=== PATIENT | male | born 1980 | race Caucasian/White ===

== ENCOUNTER 2016-06-12 13:19 | Emergency (ER) | payer OTHER ==
[~2016-06-12] VITALS: Ht 188 cm; Wt 77.7 kg
[2016-06-12 13:46] VITALS: TEMP 36.6; Ht 188 cm; Wt 77.7 kg
[2016-06-12] MEDS ORDERED: AMOX500C3 PO (14:06)
--- NOTE | 2016-06-12 14:13 | EMERGENCY ROOM VISIT NOTE ---
History First contact with patient: 13:55 Chief Complaint: FACIAL PAIN/INJURY Stated Complaint: PAIN IN JAW, TEETH, UNDER JAW, POSSIBLE INFECTION History of Present Illness The patient is a 35 year old male who presents to the Emergency Room with complaints of right-sided facial pain. The patient believes that he may have a dental infection. He reports having several fillings done approximately 1.5 months ago. He thinks that he can feel a lymph node under his right jaw. He also reports pain radiating near the right ear, and behind the right eye. The patient denies any tongue or throat swelling, neck pain or headache. He also denies any fevers or chills or other recent infection. He rates his discomfort a 6 out of 10. Review of Systems 10 system review was performed and was negative except for pertinent positives and negatives as indicated in history of present illness Past Medical/Surgical History Medical Problems: (1) Heroin addiction Surgical Problems: (1) No history of previous surgery Family History Unremarkable Social History Smoking Status: Former Smoker Alcohol Use: none Drug Use: heroin (recovering addict) Marital Status: single Occupation Status: employed Current/Historical Medications Scheduled Amoxicillin (Amoxil), 500 MG PO TID Allergies Uncoded Allergies: NKDA (Allergy, Unknown, 12/24/02) Physical Exam Vital Signs Date Time Temp Pulse Resp B/P Pulse Ox O2 Delivery O2 Flow Rate FiO2 06/12/16 13:46 36.6 54 20 119/70 100 Room Air Physical Exam CONSTITUTIONAL: Healthy and well nourished. Alert and oriented X 3 with positive affect. HEENT: Normocephalic, atraumatic. Pupils equal, round and reactive. No facial edema noted. Examination of the right ear does not show any erythema of the external canal. Cerumen impaction bilaterally prohibits TM visualization. The patient has no tenderness to palpation of the right facial region. OROPHARYNX: The patient has no obvious gingival erythema. There is mild erythema over the right tonsillar arch. No exudates. Negative trismus. No evidence for Abelardo's angina or retropharyngeal abscess. LYMPHATICS: The patient has a solitary right submandibular lymph node. No preauricular, cervical chain or submental adenopathy. NECK: Full active range of motion without discomfort. No JVD or carotid bruits. RESPIRATORY: Clear to auscultation bilaterally with no wheezing, crackles, rhonchi or stridor. CARDIOVASCULAR: Regular rate and rhythm with no murmurs, rubs or gallops. INTEGUMENTARY: No rash or other significant dermatologic conditions noted. NEUROLOGIC: Facial sensations are intact. Medical Decision & Procedures ED Course Patient history and physical exam were performed. Nurse's notes were reviewed. Vital signs were reviewed and were normal. The exact etiology of the patient' s discomfort is unknown. Because he does have right tonsillar arch erythema and right submandibular adenopathy, I did elect to treat the patient with amoxicillin 500 mg 3 times a day 10 days. He was encouraged to take ibuprofen and Tylenol as needed for pain. I did encourage him to follow up with his dentist for reevaluation. Return to the emergency department for any progressively worsening symptoms or fever. The patient was happy with plan of care, voice understanding of all discharge instructions, refused any analgesics while in the emergency department, and rated his pain a 6 out of 10 at the time of discharge. Impression Primary Impression: Right sided facial pain Departure Information Dispostion Home / Self-Care Prescriptions Amoxicillin (AMOXIL) 500 Mg Cap 500 MG PO TID for 10 Days, #30 CAP Prov: Frantz Farrar PA 06/12/16 Forms HOME CARE DOCUMENTATION FORM, IMPORTANT VISIT INFORMATION Patient Instructions My [facility] Additional Instructions Complete all amoxicillin antibiotics as prescribed. Ibuprofen or Tylenol as needed for pain. Suggest follow-up with your dentist for reevaluation. Return to the emergency department for any progressively worsening symptoms or developing fever.
[2016-06-12] MEDS ORDERED: BUPR1SUB23 PO (14:17)
[2016-06-12] MEDS ORDERED: BUPR-83 PO (14:17)
[2016-06-12 14:28] VITALS: BP 138/85; PULSE 59; O2SAT 100
== END 2016-06-12 14:29 | disposition home or self-care (01) ==
LOC: C.EDB 13:20 → C.EDD 14:29
DX: R51 Headache (principal); Z87.891 Personal history of nicotine dependence; F11.21 Opioid dependence, in remission

== ENCOUNTER 2016-06-25 19:05 | Emergency (ER) | payer OTHER ==
[~2016-06-25] VITALS: Ht 188 cm; Wt 75.3 kg
[~2016-06-25 19:05] MED LIST: BUPR-83 PO; BUPR1SUB23 PO
[2016-06-25 19:09] VITALS: PULSE 71; TEMP 37.1; Ht 188 cm; Wt 75.3 kg
[2016-06-25 20:01] LABS: MANUAL MICROSCOPIC REQUIRED? YES; URINE APPEARANCE TURBID (CLEAR); URINE BILIRUBIN NEG (NEG); URINE COLOR RED; URINE NITRITE NEG (NEG); URINE PH 6.5 (4.5-7.5); URINE SPECIFIC GRAVITY 1.015 (1.000-1.030); UROBILINOGEN NEG (NEG)
[2016-06-25 20:02] LABS: REVIEW REQ? NO
[2016-06-25 20:05] LABS: URINE BACTERIA 1+ (NEG); URINE RBC >30 /hpf (0-4); ZZUR CULT IF INDIC CLEAN CATCH YES
--- NOTE | 2016-06-25 20:14 | DIAGNOSTIC IMAGING REPORT ---
ABDOMEN AND PELVIS CT WITHOUT CONTRAST CT DOSE: 666.21 mGy.cm HISTORY: Left flank pain TECHNIQUE: Multiaxial CT images of the abdomen and pelvis were performed without the use of intravenous and oral contrast according to the standard department stone protocol. COMPARISON STUDY: None. FINDINGS: There is a 4 mm stone within the left ureterovesical junction best seen on image 148. This results in minimal fullness within the left renal collecting system without abby hydronephrosis. There is a punctate stone within the right kidney. A 6 mm hypodense lesion within the left kidney is too small to characterize but statistically represents a cyst. The unenhanced liver, spleen, adrenal glands, gallbladder, and pancreas are unremarkable. No bowel wall thickening or obstruction on this noncontrast study. Multiple cecal diverticula. Normal appendix. IMPRESSION: 1. A 4 mm stone within the left ureterovesical junction. There is slight fullness within the left renal collecting system without abby hydronephrosis. 2. Right-sided nephrolithiasis. Electronically signed by: Haile Yancey M.D. 06/25/2016 8:13 PM Dictated Date/Time: 06/25/2016 8:08 PM
--- NOTE | 2016-06-25 20:21 | EMERGENCY ROOM VISIT NOTE ---
History Report prepared by Bobby: Debbi Ureña Under the Supervision of: Dr. Doroteo Graves D.O. First contact with patient: 19:12 Chief Complaint: HEMATURIA Stated Complaint: BLOOD IN URINE,BACK/ABD PAIN History of Present Illness The patient is a 35 year old male who presents to the Emergency Room with complaints of persistent hematuria that began one day ago. He currently rates his discomfort as a 1/10 in severity. The patient states that he initially noticed the hematuria yesterday, but states that it had worsened today. He additionally associates left flank pain and lower left abdominal pain. The patient states that he passed clots in his urine. He additionally associates burning with urination. The patient states that he has a history of hematuria in the past, but denies it ever being this severe. Source of History: patient Onset: one day ago Position: other (global) Symptom Intensity: 1/10 Quality: other (hematuria) Timing: worsening, other (persistent) Associated Symptoms: + abdominal pain (left lower), + urinary symptoms ( burning with urination) Note: Associated Symptoms: left flank pain Review of Systems See HPI for pertinent positives & negatives. A total of 10 systems reviewed and were otherwise negative. Past Medical & Surgical Medical Problems: (1) Heroin addiction Surgical Problems: (1) No history of previous surgery Family History No pertinent family history stated. Social History Smoking Status: Former Smoker Alcohol Use: none Drug Use: heroin Marital Status: single Occupation Status: employed Current/Historical Medications Scheduled Buprenorphine Hcl-Naloxone Hcl (Suboxone 8-2 Mg), 1 INCH PO DAILY Bupropion (Wellbutrin), 150 MG PO DAILY Allergies Coded Allergies: No Known Allergies (Unverified , 06/25/16) Physical Exam Vital Signs Date Time Temp Pulse Resp B/P Pulse Ox O2 Delivery O2 Flow Rate FiO2 06/25/16 19:09 37.1 71 16 121/74 100 Room Air Physical Exam CONSTITUTIONAL/VITAL SIGNS: Reviewed / noted above. GENERAL: Non-toxic in appearance. INTEGUMENTARY: Warm, dry, and [place]. HEAD: Normocephalic. EYES: without scleral icterus or trauma. ENT/OROPHARYNX: clear and moist. LYMPHADENOPATHY/NECK: Is supple without lymphadenopathy or meningismus. RESPIRATORY: Lungs clear and equal. CARDIOVASCULAR: Regular rate and rhythm. GI/ABDOMEN: Soft and nontender. No organomegaly or pulsatile mass. No rebound or guarding. Normal bowel sounds. EXTREMITIES: Warm and well perfused. BACK: No CVA tenderness. NEUROLOGICAL: Intact without focal deficits. PSYCHIATRIC: normal affect. MUSCULOSKELETAL: Normally developed with good muscle tone. Medical Decision & Procedures ER Provider Diagnostic Interpretation: CT results as stated below per my review and radiologist interpretation: ABDOMEN AND PELVIS CT WITHOUT CONTRAST CT DOSE: 666.21 mGy.cm HISTORY: Left flank pain TECHNIQUE: Multiaxial CT images of the abdomen and pelvis were performed without the use of intravenous and oral contrast according to the standard department stone protocol. COMPARISON STUDY: None. FINDINGS: There is a 4 mm stone within the left ureterovesical junction best seen on image 148. This results in minimal fullness within the left renal collecting system without abby hydronephrosis. There is a punctate stone within the right kidney. A 6 mm hypodense lesion within the left kidney is too small to characterize but statistically represents a cyst. The unenhanced liver, spleen, adrenal glands, gallbladder, and pancreas are unremarkable. No bowel wall thickening or obstruction on this noncontrast study. Multiple cecal diverticula. Normal appendix. IMPRESSION: 1. A 4 mm stone within the left ureterovesical junction. There is slight fullness within the left renal collecting system without abby hydronephrosis. 2. Right-sided nephrolithiasis. Electronically signed by: Haile Yancey M.D. 06/25/2016 8:13 PM Dictated Date/Time: 06/25/2016 8:08 PM Laboratory Results Test 06/25/16 19:45 Urine Color RED Urine Appearance TURBID (CLEAR) Urine pH 6.5 (4.5-7.5) Urine Specific [place] 1.015 (1.000-1.030) Urine Protein 2+ (NEG) Urine Glucose (UA) NEG (NEG) Urine Ketones TRACE (NEG) Urine Occult Blood 3+ (NEG) Urine Nitrite NEG (NEG) Urine Bilirubin NEG (NEG) Urine Urobilinogen NEG (NEG) Urine Leukocyte Esterase NEG (NEG) Urine RBC >30 /hpf (0-4) Urine WBC 5-10 /hpf (0-5) Urine Epithelial Cells 10-20 /lpf (0-5) Urine Bacteria 1+ (NEG) Urine Hyaline Casts 1-5 /lpf (0-5) Laboratory results as stated above per my review. ED Course 1915: Previous medical records were reviewed. The patient was evaluated in room A3. A complete history and physical examination was performed. 2016: I reevaluated the patient and he is resting comfortably. I discussed the exam findings with him and I discussed the treatment plan. He verbalized complete understanding and agreement. He is ready to go home. Medical Decision Differential considered: pancreatitis, hepatitis, or acute cholecystitis, AAA, UTI, pyelonephritis, kidney stones, appendicitis, diverticulitis, shingles, bowel obstruction mesenteric ischemia, intussusception,hernia, testicular torsion. This is a 35-year-old male who presents to the ED with a chief complaint left flank pain. The patient also reports hematuria. His symptoms started earlier today. His symptoms haven't improved. An i-STAT laboratory study reveals normal hemoglobin and normal kidney function. CT scan of the abdomen and pelvis reveals a 4 mm left UVJ stone. The patient is currently asymptomatic. He was told results the test. He was given a urine strainer. He is felt to be stable for discharge. He will use ibuprofen as needed for pain. Impression Primary Impression: Kidney stone on left side Additional Impression: Renal colic on left side Scribe Attestation The scribe's documentation has been prepared under my direction and personally reviewed by me in its entirety. I confirm that the note above accurately reflects all work, treatment, procedures, and medical decision making performed by me. Departure Information Dispostion Home / Self-Care Referrals Ai Gayle D.O. (PCP) Patient Instructions ED Stone Renal W Colic, My [facility] Additional Instructions Take Tylenol or ibuprofen as needed for any additional discomfort. Use urine strainer when you urinate to catch stone. Return for any concerns. Blood in the urine and symptoms should improve in the next 24-48 hours. Problem Qualifiers
[2016-06-25 20:27] VITALS: BP 119/71; O2SAT 98
[2016-06-25 21:35] LABS: ISTAT CREATININE 0.7 mg/dl (0.6-1.3); ISTAT HEMOGLOBIN 13.6 g/dl (14.0-18.0); ISTAT IONIZED CALCIUM 1.17 mmol/l (1.12-1.32)
== END 2016-06-25 20:33 | disposition home or self-care (01) ==
LOC: C.EDB 19:06 → C.EDA 20:33
DX: N20.0 Calculus of kidney (principal); N23 Unspecified renal colic; F11.20 Opioid dependence, uncomplicated; Z87.891 Personal history of nicotine dependence